=== PATIENT | female | born 1975 | race Caucasian/White ===

== ENCOUNTER 2016-11-01 13:03 | Emergency (ER) | payer MEDICARE ==
[~2016-11-01 13:03] MED LIST: LASIX40 MG PO; NORCO 5-325 TA1 EACH PO; PHENERGAN25 M1 PO; PROAIR HFA8.5 GM INH; PROTONIX 40MG T40 MG PO; XANAX1 MG PO
== END 2016-11-01 18:37 | disposition left against medical advice (07) ==
LOC: FER 13:03
DX: R10.30 Lower abdominal pain, unspecified (principal); R11.0 Nausea; Z53.8 Procedure and treatment not carried out for other reasons